=== PATIENT | male | born 1985 | race Caucasian/White ===

== ENCOUNTER 2016-12-23 19:42 | Emergency (ER) | payer BC ==
[2016-12-23 19:59] VITALS: BP 112/70
[2016-12-23] MEDS ORDERED: DOXYcycline CAP(*) 100 MG PO ONE (20:17)
[2016-12-23] MEDS ORDERED: Amoxicillin/Clavulanate TAB* 500 MG PO ONE (20:33)
[2016-12-23] MEDS ORDERED: Benzonatate CAP* 100 MG PO ONE (20:33)
--- NOTE | 2016-12-23 20:51 | UC ---
Respiratory Complaint HPI - HPI Summary HPI Summary: Patient presents with 3-4 day onset complaints of fatigue, malaise, and weakness. He also complains of ear pain, sore throat, chest congestion and progressively worsening cough. He states his cough is productive with yellow, green, bloody sputum. He states the coughing is worse at night. He states that he now feels more flush so came in for evaluation. He denies chest, abdominal pain, nausea, vomiting or diarrhea. - History of Current Complaint Chief Complaint: UCRespiratory Stated Complaint: RESP Time Seen by Provider: 12/23/16 20:12 Hx Obtained From: Patient Onset/Duration: Gradual Onset, Lasting Days Timing: Intermittent Episodes Severity Initially: Moderate Severity Currently: Moderate Character: Cough: Productive Aggravating Factors: Deep Breaths, Recumbent Position Alleviating Factors: OTC Meds, Upright Position, Spontaneous Resolution Associated Signs And Symptoms: Positive: Fever, URI, Nasal Congestion, Sinus Discomfort - Risk Factors Pulmonary Embolism Risk Factors: Negative Cardiac Risk Factors: Negative Pseudomonas Risk Factors: Negative Tuberculosis Risk Factors: Negative - Allergies/Home Medications Allergies/Adverse Reactions: Allergies Allergy/AdvReac Type Severity Reaction Status Date / Time [facility] Allergy Intermediate Hives Verified 12/28/11 09:18 Home Medications: Home Medications Omeprazole 20 mg PO 12/23/16 [History] Pseudoephedrine-Naproxen Sodiu [Aleve-D Sinus & Cold 120-220 mg] 1 tab PO [History] PMH/Surg Hx/FS Hx/Imm Hx Previously Healthy: Yes - Surgical History Surgical History: Yes Surgery Procedure, Year, and Place: appendectomy, tonsillectomy - Family History Known Family History: Positive: Diabetes - Social History Occupation: Employed Full-time Lives: Alone Alcohol Use: Occasionally Substance Use Type: Marijuana Substance Use Comment - Amount & Last Used: occasionally Smoking Status (MU): Current Some Day Smoker Type: Cigarettes - Immunization History Most Recent Tetanus Shot: 2-3 years ago Review of Systems Constitutional: Fever, Fatigue Skin: Negative Eyes: Negative ENT: Sore Throat, Ear Ache, Nasal Discharge, Sinus Congestion Respiratory: Cough Cardiovascular: Negative Gastrointestinal: Negative Genitourinary: Negative Motor: Negative Neurovascular: Negative Musculoskeletal: Negative Neurological: Negative Psychological: Negative All Other Systems Reviewed And Are Negative: Yes Physical Exam Triage Information Reviewed: Yes Appearance: Ill-Appearing Vital Signs: Initial Vital Signs Temp 98.2 F 12/23/16 19:54 Pulse 114 12/23/16 19:54 Resp 18 12/23/16 19:54 BP 112/70 12/23/16 19:54 Pulse Ox 98 12/23/16 19:54 Vital Signs Reviewed: Yes Eye Exam: Normal ENT: Positive: Pharyngeal erythema, Nasal congestion, TM red Neck exam: Normal Respiratory: Positive: Rhonchi, Wheezing Cardiovascular Exam: Normal Abdominal Exam: Normal Musculoskeletal Exam: Normal Skin Exam: Normal UC Diagnostic Evaluation - Laboratory O2 Sat by Pulse Oximetry: 98 Respiratory Course/Dx - Course Course Of Treatment: Patient was treated for acute bronchits with augmentin 500 mg bid x 10 days, tylenol/codeine cough medication and i took him out of work tomorrow. He was othewise stable and appropriate for outpatient discharge and follow up. - Differential Dx/Diagnosis Differential Diagnosis/HQI/PQRI: Bronchitis Provider Diagnoses: bronchitis Discharge - Discharge Plan Condition: Stable Disposition: HOME Prescriptions: Acetaminoph/Cod 120/12 mg LIQ* [Tylenol/Codeine 120/12 LIQ*] 10 ml PO Q4H PRN # 240 ml MDD 60 ml PRN Reason: Cough Amoxicillin/Clavulanate TAB* [Augmentin TAB 500 mg*] 500 mg PO BID #20 tab Patient Education Materials: Acute Bronchitis (ED) Forms: *Work Release Referrals: No Primary Care Phys,NOPCP [Primary Care Provider] - Additional Instructions: If you symptoms do not improve as anticipated please return at once for re- evaluation.
== END 2016-12-23 20:55 | disposition home or self-care (01) ==
LOC: UCEAST 19:42
DX: J40 Bronchitis, not specified as acute or chronic (principal); F17.210 Nicotine dependence, cigarettes, uncomplicated
CPT/HCPCS: 99202; A9270-GY; G0463

== ENCOUNTER 2017-01-31 12:38 | Emergency (ER) | payer BC ==
--- NOTE | 2017-01-31 13:10 | UC ---
Respiratory Complaint HPI - HPI Summary HPI Summary: 31 yo male with bilat otalgia/nasal congestion /facial pressure x >1 weekf/c no f/c no cp or sob no stiff neck starting to get cold sore - History of Current Complaint Chief Complaint: UCRespiratory Stated Complaint: SINUSES,COLD SORE Time Seen by Provider: 01/31/17 12:56 Hx Obtained From: Patient Onset/Duration: Lasting Weeks Timing: Constant Severity Initially: Mild Severity Currently: Moderate Pain Intensity: 4 Pain Scale Used: 0-10 Numeric Character: Cough: Nonproductive Associated Signs And Symptoms: Positive: Nasal Congestion, Sinus Discomfort - Allergies/Home Medications Allergies/Adverse Reactions: Allergies Allergy/AdvReac Type Severity Reaction Status Date / Time Cefaclor [From [facility]] Allergy Intermediate Hives Verified 01/31/17 13:03 PMH/Surg Hx/FS Hx/Imm Hx Previously Healthy: Yes - Surgical History Surgical History: Yes Surgery Procedure, Year, and Place: appendectomy, tonsillectomy - Family History Known Family History: Positive: Cardiac Disease, Hypertension, Diabetes - Social History Alcohol Use: Occasionally Substance Use Type: Marijuana Substance Use Comment - Amount & Last Used: occasionally Smoking Status (MU): Current Some Day Smoker Type: Cigarettes - Immunization History Most Recent Tetanus Shot: 2-3 years ago Review of Systems Constitutional: Negative Skin: Negative Eyes: Negative ENT: Ear Ache, Nasal Discharge, Sinus Congestion, Sinus Pain/Tenderness Respiratory: Cough Cardiovascular: Negative Gastrointestinal: Negative Genitourinary: Negative Motor: Negative Neurovascular: Negative Musculoskeletal: Negative Neurological: Negative Psychological: Negative Is Patient Immunocompromised?: No All Other Systems Reviewed And Are Negative: Yes Physical Exam Triage Information Reviewed: Yes Appearance: Well-Appearing, No Pain Distress, Well-Nourished Vital Signs Reviewed: Yes Eyes: Positive: Conjunctiva Clear ENT: Positive: Hearing grossly normal, Nasal congestion, Nasal drainage, TM bulging, Sinus tenderness, Uvula midline. Negative: Trismus, Muffled voice Neck: Positive: Supple, Nontender, No Lymphadenopathy Respiratory: Positive: Lungs clear, Normal breath sounds, No respiratory distress Cardiovascular: Positive: RRR Musculoskeletal: Positive: ROM Intact, No Edema Neurological: Positive: Alert Psychological Exam: Normal Skin Exam: Normal Respiratory Course/Dx - Differential Dx/Diagnosis Provider Diagnoses: acute sinusitis. cold sore Discharge - Discharge Plan Condition: Stable Disposition: HOME Prescriptions: Amoxicillin/Clavulanate TAB* [Augmentin TAB 875*] 875 mg PO BID #20 tab ValACYclovir (*) [Valtrex 1 GM(*)] 2 gm PO BID #4 tab Patient Education Materials: Sinusitis (ED), Oral Herpes Simplex Virus Infections (ED) Forms: *Work Release Referrals: [facility] [facility] [Outside] - If Needed Additional Instructions: recheck next week if not better saline nasal spray twice daily Images Head: 1 - cold sore
[2017-01-31 13:19] VITALS: BP 127/82
== END 2017-01-31 13:41 | disposition home or self-care (01) ==
LOC: UCCORT 12:38
DX: J01.90 Acute sinusitis, unspecified (principal); B00.1 Herpesviral vesicular dermatitis; F12.90 Cannabis use, unspecified, uncomplicated; F17.210 Nicotine dependence, cigarettes, uncomplicated
CPT/HCPCS: 99212; G0463

== ENCOUNTER 2017-07-10 11:59 | Day surgery (SDC) | payer OTHER ==
[~2017-07-10 11:59] MED LIST: Buffered Lidocaine 0.9% SYRIN* 5 ML/SYR SYRINGE INTRADERM ONE; Bupivacaine 0.25% SDV* 30 ML ONE; Sodium Citrate/Citric Acid* 15 ML UDC PO ONE
[2017-07-10] MEDS ORDERED: Sodium Citrate/Citric Acid* 15 ML UDC ONE (12:29)
[2017-07-10] MEDS ORDERED: ceFAZolin 2 GM PREMIX (*) 2 GM/50 ML BAG IVPB ONE (12:29)
[2017-07-10] MEDS ORDERED: Clindamycin 900 MG IVPREMIX(* 900 MG/50 ML SDV IV ONE (12:41)
[2017-07-10] MEDS ORDERED: fentaNYL* 50 MCG/ML 2 ML VIAL (100 MCG VIAL) ONE ×2 (12:54→16:04)
[2017-07-10] MEDS ORDERED: Midazolam* 1 MG/ML 2 ML VIAL (2 MG) ONE (12:54)
[2017-07-10] MEDS ORDERED: ROPIVACAINE 5 MG/ML 30 ML BTL (0.5%) ONE (13:01)
[2017-07-10] MEDS ORDERED: Lidocaine 1%* 5 ML VIAL ONE (13:26)
[2017-07-10] MEDS ORDERED: Propofol* 10 MG/ML 20 ML BTL IV PUSH ONE ×2 (15:14→15:44)
[2017-07-10] MEDS ORDERED: Dexamethasone IV* 4 MG/ML 1 ML (4 MG) ONE (15:14)
[2017-07-10] MEDS ORDERED: Naloxone* 0.4 MG/ML 1 ML VIAL IV PRN (16:01)
[2017-07-10] MEDS ORDERED: Ondansetron INJ* 2 MG/ML VIAL IV PRN (16:01)
[2017-07-10] MEDS ORDERED: Ketorolac INJ* 30 MG/ML 1 ML VIAL IV PRN (16:01)
[2017-07-10] MEDS ORDERED: Ketorolac INJ* 30 MG/ML 1 ML VIAL ONE (16:04)
[2017-07-10] MEDS: fentaNYL* 50 MCG/ML 2 ML VIAL (100 MCG VIAL) IV PRN ×2 (16:12→16:28)
[2017-07-10] MEDS ORDERED: oxyCODONE/Acetamin 5/325 MG* TAB ONE (17:29)
[2017-07-10 17:40] VITALS: BP 115/80
--- NOTE | 2017-07-10 20:48 | OP ---
DATE OF OPERATION: 07/10/17 - [facility] DATE OF : 87 SURGEON: Dell Rainey MD CARE SERVICES MANAGER: LILIANA Kinney. An machine operator assistant was needed for the procedure to aid in positioning of the arm and retraction. ANESTHESIOLOGIST: Elijah Navas DO ANESTHESIA: Axillary block plus general. PRE-OP DIAGNOSIS: Left displaced distal radius fracture with large ulnar styloid piece. POST-OP DIAGNOSIS: Left displaced distal radius fracture with large ulnar styloid piece. OPERATIVE PROCEDURE: Open reduction and internal fixation of left distal radius fracture. INDICATIONS: Maynor is 31 years old. He has a left distal radius fracture that is displaced, has rather large ulnar styloid piece associated with it. I talked to him about his treatment options. I recommended that we fix this surgically. I told him that I would look at the styloid under intraoperative x- ray once we got the radius lined up and that I may fix it. He understood and wished to proceed. ESTIMATED BLOOD LOSS: 5 mL. COMPLICATIONS: None. FINDINGS: As expected. DESCRIPTION OF PROCEDURE: Maynor was seen in the preoperative holding area. The correct side, site, and procedure were identified. We came back to the operating room, where the arm was prepped and draped in the usual fashion and time-out was performed. A block had been done. I made a longitudinal incision over the distal FCR tendon. Dissection was carried down and the tendon sheath was opened. The tendon was retracted ulnarly. The subsheath was opened. The pronator quadratus was released off the radial margin and teed back distally, preserving the distal capsular ligament. The distal fragment was mobilized and reduced. I brought in my Synthes plate and pinned it into place. I placed one 2.4-mm cortical screw in the oblong hole. I confirmed the reduction. The reduction was nice, but I moved the plate a little bit more distal and re-pinned it. I the filled the distal row screws with three 2.4-mm locking screws ulnarly and a 2.4-mm variable angle locking screw radially. The 2 remaining proximal holes were filled with 2.4-mm cortical screws. I then checked the alignment and the hardware on x-ray, everything looked good. I therefore looked at my imaging from my ulnar styloid. It looked pretty nicely reduced. I decided not to treat it surgically. I, therefore, irrigated out the wound. The pronator was repaired with 3-0 Vicryl. Subcutaneous tissue was reapproximated with 3- 0 Vicryl. Skin was closed with 4-0 Monocryl and Steri-Strips. The wound was dressed with Xeroform, 4x4, sterile Webril, and a cock-up wrist splint was applied. He was then woken up and taken to the recovery room in stable condition. [id number]/CPS #: [id number] [facility]ITAL[facility]
--- NOTE | 2017-07-10 22:01 | RAD ---
INDICATION: S 52.592A COMPARISONS: July 05, 2017 TECHNIQUE: Fluoroscopy was provided for a surgical procedure. Total fluoroscopy time is: 13.3 seconds FINDINGS: Spot images demonstrate internal fixation of the distal radius. There is a fracture of the styloid process of the ulna. IMPRESSION: FLUOROSCOPY WAS PROVIDED FOR A SURGICAL PROCEDURE CPT II Codes: G9500
== END 2017-07-10 18:10 | disposition home or self-care (01) ==
LOC: OR 11:59
PROVIDERS: ATTEND Orthopaedic Surgery Hand Surgery
DX: S52.592A Other fractures of lower end of left radius, initial encounter for closed fracture (principal); G89.18 Other acute postprocedural pain; F17.210 Nicotine dependence, cigarettes, uncomplicated; V49.9XXA Car occupant (driver) (passenger) injured in unspecified traffic accident, initial encounter; Y92.9 Unspecified place or not applicable; Z68.41 Body mass index [BMI] 40.0-44.9, adult
CPT/HCPCS: 76001; A9270-GY; C1713; C1776; J0690; J1100; J1885; J2250; J2704; J2795; J3010

== ENCOUNTER 2019-07-05 13:05 | Emergency (ER) | payer OTHER ==
--- OUTSIDE RECORDS SUMMARY | 2019-07-05 13:14 | XMS REPORT | Continuity of Care Document ---
:1985 External Reference #:[id number] Author Name Monik Sun NP Address [address], [address] [place] [address] Care Team Providers Name Role Phone Silvano Rodriguez D.O. - Family Medicine Care Team Information Network Manager [phone] Problems Active Problems Provider Date Other fractures of lower end of left radius, Dell Rainey MD Onset: 2017 subsequent encounter for closed fracture with routine healing Other fracture of lower end of left ulna, Dell Rainey MD Onset: 2017 subsequent encounter for closed fracture with routine healing Obstructive sleep apnea syndrome Carolyn Son MD Onset: 02/05/2019 Note: Mild sleep apnea 5.0 NPSG Social History Type Date Description Comments Sex Unknown ETOH Use Drinks Alcoholic Beverages Occasionally Tobacco Use Start: Unknown No cigarettes for the past month(02/06/19 Recreational Drug Use Denies Drug Use Smoking Status Reviewed: 05/15/19 No cigarettes for the past month(02/06/19 Exercise Type/Frequency Does not exercise Allergies, Adverse Reactions, Alerts Active Allergies Reaction Severity Comments Date Cefaclor hives 07/05/2017 Seasonal 07/05/2017 Medications Active Medications SIG Qnty Indications Ordering Provider Date Omeprazole 1 by mouth every Unknown 20mg Capsules day DR Martinez 4 by mouth as Unknown 200mg Tablets needed Immunizations Description No Information Available Vital Signs Date Vital Result Comment 05/15/2019 1:08pm Height 70.75 inches 5'10.75" Weight 290.00 lb Heart Rate 89 /min BP Systolic 118 mmHg BP Diastolic 64 mmHg O2 % BldC Oximetry 95 % BMI (Body Mass Index) 40.7 kg/m2 03/20/2019 1:38pm Height 70.75 inches 5'10.75" Weight 290.00 lb Heart Rate 85 /min BP Systolic 110 mmHg BP Diastolic 60 mmHg O2 % BldC Oximetry 95 % BMI (Body Mass Index) 40.7 kg/m2 Results Description No Information Available Procedures Date Code Description Status 01/11/2019 22203 Polysomnography Sleep Staging 4+ Parameters Completed Medical Devices Description No Information Available Encounters Type Date Location Provider Dx Diagnosis Office Visit 05/15/2019 [facility] G47.33 Obstructive sleep 1:30p [facility] ap[facility] (adult) [facility] (pediatric) 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, shift work type R53.83 Other fatigue Office Visit 03/20/2019 [facility] G47.33 Obstructive sleep 1:30p [facility] apnea (adult) [facility] (pediatric) R53.83 Other fatigue Office Visit 02/06/2019 [facility] G47.33 Obstructive sleep 9:30a [facility] apnea (adult) [facility] (pediatric) R53.83 Other fatigue Office Visit 12/07/2018 7:30a [facility] Carolyn Son R06.83 [facility] R53.83 Other fatigue Assessments Date Code Description Provider 05/15/2019 G47.33 Obstructive sleep apnea (adult) (pediatric) Monik Sun NP 05/15/2019 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, shift work Monik Sun NP type 05/15/2019 R53.83 Other fatigue Monik Sun NP 03/20/2019 G47.33 Obstructive sleep apnea (adult) (pediatric) Monik Sun NP 03/20/2019 R53.83 Other fatigue Monik Sun NP 02/06/2019 G47.33 Obstructive sleep apnea (adult) (pediatric) Monik Sun NP 02/06/2019 R53.83 Other fatigue Monik Sun NP 01/11/2019 G47.33 Obstructive sleep apnea (adult) (pediatric) Carolyn Son MD 12/07/2018 R06.83 Snoring Carolyn Son MD 12/07/2018 R53.83 Other fatigue Carolyn Son MD Plan of Treatment 05/15/2019 - Monik Sun, NPG47.33 Obstructive sleep apnea (adult) ( pediatric)New Orders:[facility], Ordered: 05/15/19Follow up:6 monthsRecommendations:If you have difficulty with your equipment, or need to replace your mask or hoses, please contact your homecare agency, [facility] . If you have any further questions, pleasecall the [facility] Center at [phone] If you have any sleepiness while driving you MUST avoid operating a vehicle or machinery. If you feel tired while driving, caul fat puller and take a nap or switch drivers. If you know you are sleepy and need to go somewhere, arrange for a ride or use public transportation. It is very important to not risk your safety or the safety of others.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, shift work typeRecommendations: Since you still have some residual sleepiness some nights, we can consider a trial of modafinil, a mild stimulant medication. Please review the information provided and let us know if you would like totry this. If you do, we will have you come in for a follow up appointment sooner.R53.83 Other fatigue Functional Status Description No Information Available Mental Status Description No Information Available Referrals Description No Information Available
--- OUTSIDE RECORDS SUMMARY | 2019-07-05 13:14 | XMS REPORT | Continuity of Care Document ---
:1985 External Reference #:[id number] Author Name Monik Sun NP (transmitted by agent of provider Karrie Joseph) Address [address], [address] [place] [id number] Care Team Providers Name Role Phone Silvano Rodriguez D.O. 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, shift work type R53.83 Other fatigue Office Visit 03/20/2019 [facility] G47.33 Obstructive sleep 1:30p [facility] apnea (adult) [facility] (pediatric) R53.83 Other fatigue Office Visit 02/06/2019 [facility] G47.33 Obstructive sleep 9:30a [facility] apnea (adult) [facility] (pediatric) R53.83 Other fatigue Office Visit 12/07/2018 7:30a [facility] Carolyn Son R06.83 [facility] R53.83 Other fatigue Assessments Date Code Description Provider 05/15/2019 G47.33 Obstructive sleep apnea (adult) (pediatric) Monik Sun, [facility] 05/15/2019 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, shift work Monik Sun ENTERTAINMENT DIRECTOR type 05/15/2019 R53.83 Other fatigue Monik Sun [...] fatigue Carolyn Son MD Plan of Treatment Future Appointment(s):11/13/2019 9:30 am - Monik Sun NP at [facility]05/15/2019 - Monik Sun NPG47.33 Obstructive sleep apnea (adult) (pediatric)Follow up:6 monthsRecommendations:If you have difficulty with your equipment, or need to replace your mask or hoses, please contact your homecare agency, [facility] . If you have any further questions, pleasecall the [facility] at If you have any sleepiness while driving you MUST avoid operating a vehicle or machinery. If you feel tired while driving, cloth covered helmet puller and take a nap or switch drivers. If you know you are sleepy and need to go somewhere, arrange for a ride or use public transportation. It is very important to not risk your safety or the safety of others.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, shift work typeRecommendations:Since you still have some residual sleepiness some [...]
[2019-07-05 13:18] VITALS: BP 133/76
--- NOTE | 2019-07-05 13:25 | UC ---
Lower Extremity/Ankle HPI - HPI Summary HPI Summary: 33-year-old male presents with complaints of left posterior lower leg tenderness and redness following an injury that occurred 3 days ago. States he was unloading a truck and a stack of 4 wooden pallets fell over and the top edge of the pallets struck the back of his lower leg causing an abrasion and some bruising. States he has had some increased redness of the braised area which is now extending into some of the surrounding tissue and states pain has worsened. He has been cleaning the wound with soap and water and applying antibiotic ointment and bandaging the wound. Reports tetanus is up-to-date. Denies fever, chills, purulent drainage, calf pain or swelling, chest pain, or shortness of breath. - History of Current Complaint Chief Complaint: UCLowerExtremity Stated Complaint: LEG INJURY Time Seen by Provider: 07/05/19 13:13 Hx Obtained From: Patient Pain Intensity: 4 - Allergies/Home Medications Allergies/Adverse Reactions: Allergies Allergy/AdvReac Type Severity Reaction Status Date / Time cefaclor [From [facility]] Allergy Hives Verified 07/05/19 13:19 Home Medications: Home Medications Omeprazole 20 mg PO QAM 12/23/16 [History Confirmed 07/05/19] clindamycin HCL [Clindamycin HCl] 300 mg PO TID 7 Days #21 capsule 07/05/19 [Rx] PMH/Surg Hx/FS Hx/Imm Hx GI/ History: Gastroesophageal Reflux - Surgical History Surgical History: Yes Surgery Procedure, Year, and Place: appendectomy 2009-[facility] [place]. tonsillectomy as a child - [facility] [place] - Family History Known Family History: Positive: Cardiac Disease, Hypertension, Diabetes - Social History Occupation: Employed Full-time Lives: With Family Alcohol Use: Occasionally Substance Use Type: Marijuana Substance Use Comment - Amount & Last Used: reports occasionally Smoking Status (MU): Former Smoker Type: Cigarettes Amount Used/How Often: reports 2 cigs per day for 12 years - Immunization History Most Recent Influenza Vaccination: no Most Recent Tetanus Shot: 2-3 years ago Review of Systems All Other Systems Reviewed And Are Negative: Yes Constitutional: Positive: Negative Skin: Positive: Other - See HPI Respiratory: Positive: Negative Cardiovascular: Positive: Negative Gastrointestinal: Positive: Negative Genitourinary: Positive: Negative Motor: Negative: Weakness Neurovascular: Negative: Decreased Sensation Musculoskeletal: Negative: Arthralgia, Decreased ROM Neurological/Mental Status: Positive: Negative Is Patient Immunocompromised?: No Physical Exam - Summary Physical Exam Summary: GENERAL APPEARANCE: Alert and cooperative adult male who appears to be in no acute distress. CARDIAC: Normal S1 and S2. No S3, S4 or murmurs. Rhythm is regular. There is no peripheral edema, cyanosis or pallor. Extremities are warm and well perfused. Capillary refill is less than 2 seconds. Peripheral pulses intact. LUNGS: Clear to auscultation without rales, rhonchi, wheezing or diminished breath sounds. ABDOMEN: Positive bowel sounds. Soft, nondistended, nontender. No guarding or rebound. No masses or hepatosplenomegally. MUSKULOSKELETAL: ROM intact to all extremities. No joint erythema or tenderness. Normal muscular development. Normal gait. Calf supple and non- tender. EXTREMITIES: 4 cm x 4 cm abrasion with erythema and increased warmth as well as eccymosis of the surrounding tissue to the posterior, distal left lower leg. No induration, fluctuance, or purulent drainage noted. SKIN: Skin normal color, texture and turgor. Triage Information Reviewed: Yes Vital Signs: Initial Vital Signs Temp 98.3 F 07/05/19 13:14 Pulse 88 07/05/19 13:14 Resp 20 07/05/19 13:14 BP 133/76 07/05/19 13:14 Pulse Ox 99 07/05/19 13:14 Vital Signs Reviewed: Yes Lower Extremity Course/Dx - Course Course Of Treatment: 33-year-old male presents with complaints of left posterior lower leg tenderness and redness following an injury that occurred 3 days ago. States he was unloading a truck and a stack of 4 wooden pallets fell over and the top edge of the pallets struck the back of his lower leg causing an abrasion and some bruising. States he has had some increased redness of the braised area which is now extending into some of the surrounding tissue and states pain has worsened. He has been cleaning the wound with soap and water and applying antibiotic ointment and bandaging the wound. Reports tetanus is up-to-date. Denies fever, chills, purulent drainage, calf pain or swelling, chest pain, or shortness of breath. Afebrile. Mildly hypertensive otherwise vital signs stable. Patient had a 4 cm x 4 cm abrasion with erythema and increased warmth as well as ecchymosis of the surrounding tissue to the posterior, distal left lower leg without induration, fluctuance, or purulent drainage noted. Calf was supple and nontender. Remainder of exam was unremarkable. Patient had pictures of the injury from the past 2 days and there does appear to be some increased and progressively worsening erythema of the wound and surrounding tissues therefore we will plan to treat for an early cellulitis. Patient is reporting an allergy to cephalosporins therefore we'll put him on clindamycin 300 mg 3 times a day 7 days. He is to follow-up with occupational medicine in 3-5 days if needed. Anticipatory guidance and warning symptoms were reviewed with the patient. Verbalizes understanding and agrees with plan of care. - Differential Dx/Diagnosis Differential Diagnosis/HQI/PQRI: Contusion, Fracture (Closed) Provider Diagnosis: Left leg injury, Abrasion of left lower leg with infection, Contusion of left lower leg Discharge ED - Sign-Out/Discharge Documenting (check all that apply): Patient Departure All imaging exams completed and their final reports reviewed: No Studies - Discharge Plan Condition: Stable Disposition: HOME Prescriptions: clindamycin HCL [Clindamycin HCl] 300 mg PO TID 7 Days #21 capsule Patient Education Materials: Cellulitis (ED), Contusion in Adults (ED), Abrasion (ED) Referrals: No Primary Care Phys,NOPCP [Primary Care Provider] - Mumtaz Perdomo MD [Medical Doctor] - 3 Days (Follow up in 3-5 days if needed.) Additional Instructions: There appears to be an early infection of the abrasion to your lower left leg. We will start you on an antibiotic to treat the infection. Start clindamycin 300 mg 1 capsule three times a day for 7 days. Be sure to complete the entire course even if felling better. Clean the wound with a mild soap and water at least once a day. Apply some antibiotic ointment and cover with a bandage. This should be changed at least once a day or any time the dressing becomes wet or soiled. Use acetaminophen (Tylenol) or ibuprofen (Advil, Motrin) according to directions as needed for pain. Follow up with occupational medicine in 3-5 days if needed. Seek immediate medical attention in the emergency room if you develop fever greater than 100.5 F, severe pain not managed with pain medication, redness that spreads, increased swelling, pus draining from the wound, or any worsening of symptoms. - Billing Disposition and Condition Condition: STABLE Disposition: Home
== END 2019-07-05 13:50 | disposition home or self-care (01) ==
LOC: UCEAST 13:05
DX: S80.812A Abrasion, left lower leg, initial encounter (principal); L08.9 Local infection of the skin and subcutaneous tissue, unspecified; S80.12XA Contusion of left lower leg, initial encounter; W20.8XXA Other cause of strike by thrown, projected or falling object, initial encounter; Y93.89 Activity, other specified; Y92.9 Unspecified place or not applicable; Y99.0 Civilian activity done for income or pay; K21.9 Gastro-esophageal reflux disease without esophagitis; Z79.899 Other long term (current) drug therapy; Z88.1 Allergy status to other antibiotic agents; Z87.891 Personal history of nicotine dependence
CPT/HCPCS: 99212; G0463